=== PATIENT | male | born 2000 | race African-American/Black ===

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

== ENCOUNTER 2022-07-16 19:26 | Emergency (ER) | payer MEDICAID ==
[~2022-07-16] VITALS: Ht 180.3 cm; Wt 86.6 kg
[~2022-07-16 19:26] MED LIST changes: -PRED15SO23; +PRED15SO26
[2022-07-16 23:50] LABS: Urine Bacteria NONE SEEN /hpf (None Seen); Urine Blood Negative /uL (Negative); Urine Mucus FEW (None Seen); Urine Specific Gravity 1.028 (1.001-1.035); Urine WBC 4 /hpf (0 - 3)
[2022-07-17 00:05] VITALS: BP 132/78
== END 2022-07-17 00:27 | disposition home or self-care (01) ==
LOC: ER 19:29
DX: N47.2 Paraphimosis (principal); J45.909 Unspecified asthma, uncomplicated; Z79.899 Other long term (current) drug therapy
CPT/HCPCS: 81001